=== PATIENT | male | born 1985 | race American Indian/Alaskan Native ===

== ENCOUNTER 2018-01-03 11:29 | Inpatient (IN) | payer OTHER ==
[2018-01-03 11:40] VITALS: BMI 32.1
[2018-01-03] MEDS ORDERED: Sodium Chloride 0.9% 1,000 ML IV STA ×2 (11:56→13:16)
[2018-01-03 12:41] LABS: URINE BILIRUBIN NEGATIVE (NEGATIVE); URINE BLOOD MODERATE (NEGATIVE); URINE GLUCOSE (UA) NEGATIVE (NEGATIVE); URINE LEUKOCYTE ESTERASE NEGATIVE Leu/uL (NEGATIVE); URINE PROTEIN 30 mg/dL (<30 mg/dL); URINE UROBILINOGEN 0.2 E.U./dL (<1 E.U./dL)
[2018-01-03 12:44] LABS: BASO # 0.02 K/mm3 (0.0-2.0); BASO % 0.1 % (0.0-3.0); GRAN # 14.33 (1.4-6.5); GRAN % 84.4 % (50.0-68.0); HEMOGLOBIN 15.9 g/dL (14.0-18.0); LYMPH # 1.1 (1.2-3.4); LYMPH % 6.4 % (22.0-35.0); MEAN CELL VOLUME 82.5 fl (80.0-105.0); MEAN CORPUSCULAR HEMOGLOBIN 30.5 pg (25.0-35.0); MEAN PLATELET VOLUME 9.9 fl (7.0-11.0); MONO # 1.6 (0.1-0.6); MONO % 9.1 % (1.0-6.0); RBC 5.21 10^6/uL (3.5-6.1); RED CELL DISTRIBUTION WIDTH 13.4 % (11.5-14.5)
[2018-01-03 12:45] LABS: URINE APPEARANCE CLEAR (CLEAR); URINE COLOR YELLOW (YELLOW)
[2018-01-03 12:53] LABS: ALB/GLOB RATIO 1.1 (1.1-1.8); ALBUMIN 4.4 g/dL (3.0-4.8); ALT/SGPT 47 U/L (7-56); AST/SGOT 79 U/L (17-59); BLOOD UREA NITROGEN 9 mg/dL (7-21); CALCIUM 9.2 mg/dL (8.4-10.5); GFR AFRICAN-AMERICAN > 60; GFR NON-AFRICAN AMERICAN > 60
--- NOTE | 2018-01-03 13:09 | ED PDOC ---
Arrival/HPI - General Chief Complaint: Medical Clearance Time Seen by Provider: 01/03/18 11:54 Historian: Patient - History of Present Illness Narrative History of Present Illness (Text): 01/03/18 13:03 32yo male with no pmhx bib EMS with complaint of generalized weakness and subjective fever. Patient states he has been feeling "hot and dehydrated" since Tuesday. States he kept drinking water, but still feels dehydrated. Also reports weakness. Although the triage states patient had no AC at home, patient stated that he had AC at home. Denies chest pain, SOB, URI symptoms, nausea, vomiting , abdominal pain, dizziness, any other complaint. He admits to using Marijuana on . Past Medical History - Provider Review Nursing Documentation Reviewed: Yes - Infectious Disease Hx of Infectious Diseases: None Family/Social History - Physician Review Nursing Documentation Reviewed: Yes Family/Social History: Unknown Family HX Allergies/Home Meds Allergies/Adverse Reactions: Allergies No Known Allergies Allergy (Verified 01/03/18 11:40) Home Medications: Home Meds Medication Instructions Recorded Confirmed No Known Home Med 01/03/18 01/03/18 Review of Systems - Physician Review All systems were reviewed & negative as marked: Yes - Review of Systems Constitutional: Fatigue Eyes: Normal ENT: Normal Respiratory: Normal Cardiovascular: Normal Gastrointestinal: Normal Genitourinary Male: Normal Musculoskeletal: Normal Skin: Normal Neurological: Normal Endocrine: Normal Hemo/Lymphatic: Normal Psychiatric: Normal Physical Exam Vital Signs Reviewed: Yes Vital Signs Temp Pulse Resp BP Pulse Ox 01/03/18 11:35 98.9 F 100 H 20 116/70 98 Temperature: Afebrile Blood Pressure: Normal Pulse: Regular Respiratory Rate: Normal Appearance: Positive for: Well-Appearing, Non-Toxic, Comfortable Pain Distress: None Mental Status: Positive for: Alert and Oriented X 3 - Systems Exam Head: Present: Atraumatic, Normocephalic Pupils: Present: PERRL Extroacular Muscles: Present: EOMI Conjunctiva: Present: Normal Mouth: Present: Moist Mucous Membranes Neck: Present: Normal Range of Motion Respiratory/Chest: Present: Clear to Auscultation, Good Air Exchange. No: Respiratory Distress, Accessory Muscle Use Cardiovascular: Present: Regular Rate and Rhythm, Normal S1, S2. No: Murmurs Abdomen: No: Tenderness, Distention, Peritoneal Signs Back: Present: Normal Inspection Upper Extremity: Present: Normal Inspection. No: Cyanosis, Edema Lower Extremity: Present: Normal Inspection. No: Edema Neurological: Present: GCS=15, CN II-XII Intact, Speech Normal Skin: Present: Warm, Dry, Normal Color. No: Rashes Psychiatric: Present: Alert, Oriented x 3, Normal Insight, Normal Concentration Medical Decision Making ED Course and Treatment: 01/03/18 21:00 PT in ED for sated history. He was hemodynamically stable and not hypoxic in ED. Lab was noted with leukocytosis and elevated CPK Pt was hydrated with 2L of NS for rhabdo. Broad spectrum abx - Vanco was ordered and zosyn was also given Blood culture ordered and pending CXR IMPRESSION: Left lateral pleural parenchymal based pathology -differential considerations as above. Consider CT of the chest with contrast enhancement for further evaluation Chest CT IMPRESSION: Extensive posterior left upper lobe consolidation compatible with an extensive infiltrate here. No endobronchial lesions or extrinsic compression masses suggested. The extensive consolidation/ infiltrate -extends to the left lateral pleural surface. At this time no loculated left pleural effusion or left empyema suggested Nevertheless, continued close follow-up is recommended to ensure uncomplicated improvement/resolution. Fatty liver Mild cardiomegaly. No pericardial effusion PT was admitted for IV abx, hydration and further evaluation Case was DW Dr. Doll and he accepted pt for admission - Lab Interpretations Lab Results: 01/03/18 12:05 01/03/18 12:05 Lab Results 01/03/18 13:50: Urine Opiates Screen Negative, Urine Methadone Screen Negative, Ur Barbiturates Screen Negative, Ur Phencyclidine Scrn Negative, Ur Amphetamines Screen Negative, U Benzodiazepines Scrn Negative, U Oth Cocaine Metabols Negative, U Cannabinoids Screen Positive H 01/03/18 12:30: Total Creatine Kinase 2730 H, CK-MB (CK-2) 3.5, CK-MB (CK-2) % Cancelled 01/03/18 12:05: Sodium 131 L, Potassium 3.5 L, Chloride 96 L, Carbon Dioxide 21 , Anion Gap 18, BUN 9, Creatinine 1.0, Est GFR ( Amer) > 60, Est GFR (Non -Af Amer) > 60, Random Glucose 106, Calcium 9.2, Total Bilirubin 0.6, AST 79 H, ALT 47, Alkaline Phosphatase 65, Total Protein 8.3, Albumin 4.4, Globulin 3.9, Albumin/Globulin Ratio 1.1 01/03/18 12:05: Urine Color Yellow, Urine Appearance Clear, Urine pH 6.0, Ur Specific [place] 1.010, Urine Protein 30 H, Urine Glucose (UA) Negative, Urine Ketones Negative, Urine Blood Moderate H, Urine Nitrate Negative, Urine Bilirubin Negative, Urine Urobilinogen 0.2, Ur Leukocyte Esterase Negative, Urine RBC 5 - 10, Urine WBC 2 - 5, Ur Epithelial Cells 3 - 4, Urine Bacteria Few 01/03/18 12:05: WBC 17.0 H, RBC 5.21, Hgb 15.9, Hct 43.0, MCV 82.5, MCH 30.5, MCHC 37.0, RDW 13.4, Plt Count 144, MPV 9.9, Gran % 84.4 H, Lymph % (Auto) 6.4 L , [place] % (Auto) 9.1 H, Eos % (Auto) 0.0 L, Baso % (Auto) 0.1, Gran # 14.33 H, Lymph # (Auto) 1.1 L, [place] # (Auto) 1.6 H, Eos # (Auto) 0.0, Baso # (Auto) 0.02 - RAD Interpretation Radiology Orders: 01/03/18 13:17 CHEST PORTABLE [RAD] Stat 01/03/18 13:51 CHEST W/CONTRAST [CT] Stat - Medication Orders Current Medication Orders: Acetaminophen (Tylenol 325mg Tab) 650 mg PO Q6H PRN PRN Reason: Pain, moderate (4-7) Last Admin: 01/03/18 16:50 Dose: 650 mg [facility] Pain/Vitals Document 01/03/18 16:50 SES (Rec: 01/03/18 16:50 SES [id number]) Vitals Temperature (97.6 F-99.6 F) 103 F Temperature Source Axillary Re-Assess: [facility] Pain/Vitals Document 01/03/18 17:50 SES (Rec: 01/03/18 18:47 SES [id number]) Vitals Temperature (97.6 F-99.6 F) 100.4 F Temperature Source Oral Ceftriaxone Sodium (Rocephin 1 Gram Ivpb) 1 gm in 100 mls @ 100 mls/hr IVPB DAILY VINAY PRN Reason: Protocol Sodium Chloride (Sodium Chloride 0.9%) 1,000 mls @ 150 mls/hr IV .Q6H40M VINAY Last Admin: 01/03/18 15:55 Dose: 150 mls/hr eMAR Start Stop Document 01/03/18 15:55 EQ (Rec: 01/03/18 15:55 EQ [id number]) Intravenous Solution Start Date 01/03/18 Start Time 15:55 End Date 01/03/18 Azithromycin (Zithromax 500mg In Ns) 500 mg in 250 mls @ 167 mls/hr IVPB DAILY VINAY PRN Reason: Protocol Lactobacillus Acidophilus (Bacid Acidophilus) 1 cap PO BID VINAY Last Admin: 01/03/18 18:46 Dose: 1 cap Discontinued Medications Sodium Chloride (Sodium Chloride 0.9%) 1,000 mls @ 999 mls/hr IV .Q1H1M STA Stop: 01/03/18 12:56 Last Admin: 01/03/18 12:19 Dose: 999 mls/hr eMAR Start Stop Document 01/03/18 12:19 EQ (Rec: 01/03/18 12:19 EQ [id number]) Intravenous Solution Start Date 01/03/18 Start Time 12:19 Sodium Chloride (Sodium Chloride 0.9%) 1,000 mls @ 999 mls/hr IV .Q1H1M STA Stop: 01/03/18 14:16 Last Admin: 01/03/18 13:33 Dose: 999 mls/hr eMAR Start Stop Document 01/03/18 13:33 EQ (Rec: 01/03/18 13:33 EQ [id number]) Intravenous Solution Start Date 01/03/18 Start Time 13:33 Vancomycin HCl (Vancomycin 1gm) 1 gm in 250 mls @ 167 mls/hr IVPB STAT STA PRN Reason: Protocol Stop: 01/03/18 15:08 Last Admin: 01/03/18 13:52 Dose: 167 mls/hr eMAR Start Stop Document 01/03/18 13:52 EQ (Rec: 01/03/18 13:52 EQ [id number]) Intravenous Solution Start Date 01/03/18 Start Time 13:52 Piperacillin Sod/Tazobactam Sod (Zosyn 3.375 In Ns 100ml) 100 mls @ 200 mls/hr IVPB STAT STA PRN Reason: Protocol Stop: 01/03/18 15:10 Last Admin: 01/03/18 15:54 Dose: 200 mls/hr eMAR Start Stop Document 01/03/18 15:54 EQ (Rec: 01/03/18 15:54 EQ [id number]) Intravenous Solution Start Date 01/03/18 Start Time 15:54 End Date 01/03/18 End time 16:24 Total Infusion Time 30 Disposition/Present on Arrival - Present on Arrival Any Indicators Present on Arrival: No History of DVT/PE: No History of Uncontrolled Diabetes: No Urinary Catheter: No History of Decub. Ulcer: No History Surgical Site Infection Following: None - Disposition Have Diagnosis and Disposition been Completed?: Yes Diagnosis: Pneumonia, Rhabdomyolysis, Leukocytosis Disposition: HOSPITALIZED Disposition Time: 14:15 Patient Plan: Admission Patient Problems: Current Active Problems Problem Status Onset Leukocytosis Acute Pneumonia Acute Rhabdomyolysis Acute Condition: STABLE
[2018-01-03 13:32] LABS: CK-MB 3.5 ng/mL (0.0-3.6)
[2018-01-03] MEDS ORDERED: Vancomycin 1gm in NS 250ml 1 GM/250 ML BAG IVPB STA (13:39)
--- NOTE | 2018-01-03 13:46 | RAD ---
HISTORY: admission/leukocytosis COMPARISON: No prior. FINDINGS: LUNGS: Homogeneous opacity inferior left westley thorax -lateral aspect noted. Right lung relatively clear PLEURA: Left lateral loculated pleural effusion and/or implying edema or other left pleural base pathology / left pleural parenchymal infiltrate all considerations. No obscuration of the left costophrenic angle to suggest a large multiple fluid effusion here. No pneumothorax apparent. CARDIOVASCULAR: Normal OSSEOUS STRUCTURES: No gross significant abnormality is appreciated VISUALIZED UPPER ABDOMEN: Normal. OTHER FINDINGS: None. IMPRESSION: Left lateral pleural parenchymal based pathology -differential considerations as above. Consider CT of the chest with contrast enhancement for further evaluation
[2018-01-03 13:47] LABS: URINE BACTERIA FEW (NEG)
[2018-01-03] MEDS ORDERED: Iohexol 350 MG/100 ML VIAL ONE (13:57)
[2018-01-03 14:24] LABS: BARBITURATES, UR NEGATIVE (NEGATIVE); BENZODIAZEPINES, UR NEGATIVE (NEGATIVE); OPIATES, UR NEGATIVE (NEGATIVE); PHENCYCLIDINE, UR NEGATIVE (NEGATIVE)
[2018-01-03] MEDS ORDERED: Piperacillin/Tazobact 3.375 gm 100 ML IVPB STA (14:41)
--- NOTE | 2018-01-03 14:45 | CT ---
PROCEDURE: CT Chest with contrast HISTORY: Per findings on CXR COMPARISON: Portable chest x-ray 01/03/2018 TECHNIQUE: Contiguous axial images were obtained through the chest with intravenous contrast enhancement. Sagittal and coronal reconstructions were performed. IV contrast: 100 mL of Omnipaque 350 Radiation dose (DLP): 635 mGy-cm. This CT exam was performed using one or more of the following dose reduction techniques: Automated exposure control, adjustment of the mA and/or kV according to patient size, and/or use of iterative reconstruction technique. FINDINGS: LUNGS: Extensive posterior segmental left upper lobe consolidation present. . Contiguous with the left lateral pleural surface. No typical loculated fluid collection or typical implying heme a here now suggested. However close continued follow-up to ensure resolution and improved aeration here is advised. No central endobronchial lesions noted no extrinsic compression masses is noted. There is some diminution of the more peripheral left bronchials by the consolidation. A concomitant atelectasis component is inferred. Much lesser, much more patchy opacities in the lingula also suggested MEDIASTINUM: Unremarkable thoracic aorta. No aneurysm or dissection. The heart is enlarged. No pericardial effusion. Main pulmonary artery unremarkable. No vascular congestion. No lymphadenopathy. PLEURA: No pleural fluid. No pneumothorax. BONES: No fracture. No destructive lesion. UPPER ABDOMEN: Fatty liver OTHER FINDINGS: None. IMPRESSION: Extensive posterior left upper lobe consolidation compatible with an extensive infiltrate here. No endobronchial lesions or extrinsic compression masses suggested. The extensive consolidation/ infiltrate -extends to the left lateral pleural surface. At this time no loculated left pleural effusion or left empyema suggested Nevertheless, continued close follow-up is recommended to ensure uncomplicated improvement/resolution. Fatty liver Mild cardiomegaly. No pericardial effusion
[2018-01-03] MEDS: Sodium Chloride 0.9% 1,000 ML IV SCH (15:55)
--- NOTE | 2018-01-03 16:06 | CP.PCM.HP ---
<Mya Cook - Last Filed: 01/03/18 16:10> History of Present Illness - History of Present Illness History of Present Illness: Mya Cook PGY 1 History & Physical CC: Weakness Patient is a 32 year old male with PMH lymphoma in remission since 16 years ago, presented with complaint of weakness and feeling overheated. This began about 3 days prior, patient states he has tried to drink lots of fluids as well as other methods to cool off but could not alleviate his symptoms. Patient states he was not involved in any out of the ordinary activity when his symptoms started such as intense workout, fall or trauma. He also complains of back pain localized to his lower back. He admits to a nonproductive cough, which causes a headache. He admits to nausea, but no vomiting. He denies chest pain, hemoptysis, shortness of breath, abdominal pain , constipation, diarrhea. 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 Social alcohol use. Former cigarette smoker 1/2 PPD for 5 years. Currently smokes cigars. Occasional marijuana use. FHx: DM NO PMD Present on Admission - Present on Admission Any Indicators Present on Admission: No Review of Systems - Review of Systems All systems: reviewed and no additional remarkable complaints except (12 point ROS reviewed and is negative other than what is stated in HPI) - Constitutional Constitutional: As Per HPI - Cardiovascular Cardiovascular: As Per HPI Past Patient History - Infectious Disease Hx of Infectious Diseases: None - PSYCHIATRIC Hx Substance Use: No - SURGICAL HISTORY Hx Surgeries: No - ANESTHESIA Hx Anesthesia: No Hx Anesthesia Reactions: No Hx Malignant Hyperthermia: No Meds Allergies/Adverse Reactions: Allergies Allergy/AdvReac Type Severity Reaction Status Date / Time No Known Allergies Allergy Verified 01/03/18 11:40 Physical Exam - Constitutional Appears: Non-toxic, No Acute Distress - Head Exam Head Exam: ATRAUMATIC, NORMOCEPHALIC - Eye Exam Eye Exam: EOMI, Normal appearance - ENT Exam ENT Exam: Mucous Membranes Dry - Neck Exam Neck exam: Positive for: Normal Inspection - Respiratory Exam Respiratory Exam: Decreased Breath Sounds - Cardiovascular Exam Cardiovascular Exam: RRR, +S1, +S2. absent: Rubs, Systolic Murmur - GI/Abdominal Exam GI & Abdominal Exam: Normal Bowel Sounds, Soft. absent: Distended, Firm, Guarding, Organomegaly, Rebound, Tenderness - Rectal Exam Rectal Exam: Deferred - Extremities Exam Extremities exam: Positive for: full ROM. Negative for: calf tenderness, pedal edema - Back Exam Back exam: NORMAL INSPECTION - Neurological Exam Neurological exam: Alert, CN II-XII Intact, Oriented x3 - Psychiatric Exam Psychiatric exam: Normal Affect, Normal Mood - Skin Skin Exam: Dry, Intact, Normal Color, Warm Results - Vital Signs Recent Vital Signs: Last Vital Signs Temp 98.9 F 01/03/18 11:35 Pulse 100 H 01/03/18 11:35 Resp 20 01/03/18 11:35 BP 116/70 01/03/18 11:35 Pulse Ox 98 01/03/18 11:35 - Labs Result Diagrams: 01/03/18 12:05 01/03/18 12:05 Assessment & Plan - Assessment and Plan (Free Text) Assessment: 32 yo male with PMH of lymphoma presents to [facility] with weakness, subsequently found to have rhabdomyolysis and extensive left upper lobe consolidation. 1) Left upper lobe consolidation - Likely secondary to CAP - CXR shows left lateral pleural parynchemal based pathology - Chest CT shows extensive left upper lobe consolidation compatible with extensive infiltrate here. No loculated left pleural effusion or left empyema suggested. - WBC 17 - M. pneumo IGG, Legionella AG urine, strep pneumo antigen, - Blood culture - Procal - HIV - Vanc and zosyn given in ED - Rocephin 1 gm daily - Azithromycin 500 mg daily - Pulm consult 2) Rhabdomyolysis - Total CK 2730 - Repeat CK in AM - UA shows 30 protein, moderate blood (possibly d/t rhabdo) - Repeat UA in AM - Given 2 L NS in ED - Continue NS at 150 mls/hr GI/DVT PPX - GI prophylaxis not indicated at this time - DVT prophylaxis: SCDs Case seen and discussed with Dr. Lawson Cook PGY 1 <Rachel Pathak R - Last Filed: 01/04/18 08:32> Results - Vital Signs Recent Vital Signs: Last Vital Signs Temp 103.2 F H 01/04/18 05:23 Pulse 104 H 01/03/18 22:40 Resp 16 01/03/18 22:40 BP 131/83 01/03/18 22:40 Pulse Ox 95 07/03/18 22:40 - Labs Result Diagrams: 01/04/18 06:45 01/04/18 06:45 Labs: Laboratory Results - last 24 hr 01/03/18 01/04/18 01/04/18 15:45 06:45 06:45 WBC 11.4 H D RBC 4.66 Hgb 14.0 Hct 38.5 L MCV 82.6 MCH 30.0 MCHC 36.4 RDW 13.7 Plt Count 144 MPV 10.0 Sodium 138 Potassium 3.6 Chloride 106 Carbon Dioxide 21 Anion Gap 15 BUN 7 Creatinine 0.8 Est GFR ( Amer) > 60 Est GFR (Non-Af Amer) > 60 Random Glucose 104 Calcium 8.3 L Phosphorus 1.9 L Magnesium 2.2 Total Bilirubin 0.4 AST 114 H D ALT 75 H Alkaline Phosphatase 48 Total Creatine Kinase > 1600 H Total Protein 6.8 Albumin 3.5 Globulin 3.3 Albumin/Globulin Ratio 1.1 Ur L.pneumophila Ag Positive H Attending/Attestation - Attestation I have personally seen and examined this patient.: Yes I have fully participated in the care of the patient.: Yes I have reviewed all pertinent clinical information: Yes Notes (Text): Patient seen and examined by me at 3:30 PM 01/03/18 with resident at bedside. Case including physical assessment and plan discussed in detail with resident. Agree with above with following additions/changes. Patient states that he has been feeling "overheated" since 01/01/2018. He states he did not take his temperature. He denies any associated congestion. No rhinorrhea. Patient states he does have a "little bit of a cough". He denies any sick contacts. He is unsure if he had a fever at home. Did not try any medications for this at home. He states he was drinking a lot fluids. He states that he also feels like he has a headache when he coughs. No dizziness. No change in vision. No chest pain or shortness of breath. No nausea vomiting or abdominal pain. No dysuria. No diarrhea or constipation. Physical exam: Gen: Patient is awake and alert lying in bed in no acute distress HEENT: Normocephalic atraumatic. extraocular muscles intact. Pupils equal and reactive. Hearing grossly intact. Ears and nose externally unremarkable. Pharynx is pink. Dry mucous membranes. No pharyngeal erythema or exudate appreciated. Neck is supple. Pulmonary: Decreased breath sounds, more prominent left upper lobe.. No more straight effort. No rales or wheezing appreciated. Mild rhonchi left upper lobe. Cardiovascular: Normal rhythm. Normal S1 and S2. No murmurs or gallops appreciated. Gastrointestinal: Soft, nontender, nondistended. Positive bowel sounds all 4 quadrants. No guarding. No masses appreciated. Musculoskeletal: Normal range of motion of extremities. no calf tenderness. No CVA tenderness. Vascular: 2+ peripheral pulses upper and lower extremities Central nervous system: AAO 3, cranial nerves 2 through 12 grossly intact, 5 out of 5 muscle strength all extremities, sensation intact. Dermatologic: Skin warm and dry Assessment and plan: Patient is a 32-year-old male with past medical history significant for lymphoma that presented to the emergency room with feeling "overheated". Patient had left upper lobe consolidation on CT chest. Patient also found to have leukocytosis, hyponatremia, and hypochloremia. Patient also with elevated CPK and rhabdomyolysis. Patient also with hypokalemia. 1. Left upper lobe consolidation seen on chest CT: Likely community-acquired pneumonia. Pulmonary consulted, follow-up recommendations. Patient received vancomycin and Zosyn in the ED. Need on Rocephin and Zithromax. We'll check urine for Legionella, mycoplasma pneumonia, and strep pneumonia. Place on IV fluids. Tylenol as needed. 2. Leukocytosis. Likely secondary to #1. Continue antibiotics. Follow up repeat labs in a.m. 3. Hyponatremia and hypochloremia. Likely secondary to dehydration. IV fluids. Follow up repeat labs in a.m. 4. Rhabdomyolysis. CPK is elevated. Place on IV fluids. Follow up repeat labs in a.m. 5. Drug abuse. UDS positive for marijuana. Counseled on cessation. Case was discussed with patient regarding current diagnosis and treatment 01/04/18 08:32
[2018-01-03] MEDS: Lactobacillus Acidophilus 500 MU Cap PO SCH (18:46)
--- NOTE | 2018-01-04 04:11 | CON ---
DATE: 01/03/2018 HISTORY OF PRESENT ILLNESS: This is a 32-year-old gentleman with history of lymphoma (unknown whether Hodgkin or non-Hodgkin) at the age of 16 and without other significant past medical history; who presented this time with 3-day history of fever, nausea, malaise, fatigue, dry cough of rather acute onset. His symptoms progressed and were not alleviated with any maneuvers. No aggravating factors as well. Patient denies chest pain, hemoptysis, shortness of breath, abdominal pain, constipation. He, however, emphasizes that the symptoms started acutely. PAST MEDICAL HISTORY: Lymphoma. PAST SURGICAL HISTORY: Bone marrow biopsy. ALLERGIES: NKDA. SOCIAL HISTORY: Patient is current smoker. He smoked about half a pack a day for 5 years. Occasional marijuana use. Social alcohol use. FAMILY HISTORY: Noncontributory. REVIEW OF SYSTEMS: Review of 12-organ system other than mentioned in history of present illness is negative. MEDICATIONS AT HOME: None. PHYSICAL EXAMINATION: VITAL SIGNS: Temperature 103, heart rate 110, blood pressure 125/80, respiratory rate 18, oxygen saturation 96% on room air. ENT: Head and neck atraumatic. LUNGS: Clear to auscultation bilaterally. HEART: Regular rate and rhythm. S1, S2 normal. ABDOMEN: Soft, nontender, nondistended. MUSCULOSKELETAL: No C/C/E. NEUROLOGIC: Patient moves all extremities spontaneously. SKIN: Moist. PSYCHIATRIC: Patient is alert, awake, and oriented x3. Reports that he is doing better since his admission to the hospital. LABORATORY DATA: WBC is 17, hemoglobin 15.9, platelet count 144. Sodium 131, potassium 3.5, chloride 96, carbon dioxide 21, BUN 9, creatinine 1. AST 79, ALT 47, total CPK 2730. Urine is negative for nitrites and leukocyte esterase. MEDICATIONS: Tylenol p.r.n., ceftriaxone, azithromycin. LABORATORY DATA: CAT scan showed dense consolidation in the left lower lobe with some ground-glass rim and some air bronchograms. ASSESSMENT AND PLAN: This is a 32-year-old gentleman without significant risk factors for multidrug-resistant pathogens who presented with community-acquired pneumonia without signs of end-organ dysfunction (no hypoxemia, no acute kidney injury, no encephalopathy, no significant medical comorbidities). Thus, I agree with ceftriaxone and azithromycin at the present time. I agree with septic workup including blood culture, urine culture, procalcitonin, urine for Legionella and streptococcal antigen. The course of antibiotics would be determined by achieving clinical stability; it should be minimal of 5 days however. I would continue with IV fluids. I will order a CRP and if above 150 will consider small dose of steroids for 5 days. We would continue target euvolemia, euglycemia, normothermia, and oxygen saturation more than 90%. We will continue with deep venous thrombosis and gastrointestinal prophylaxis. ccm time 40 min Khurram Vera MD [facility]
[2018-01-04] MEDS: Sodium Chloride 0.9% 1,000 ML IV SCH (05:21)
[2018-01-04 07:09] LABS: MEAN CELL VOLUME 82.6 fl (80.0-105.0); MEAN CORPUSCULAR HGB CONC 36.4 g/dl (31.0-37.0); RBC 4.66 10^6/uL (3.5-6.1); RED CELL DISTRIBUTION WIDTH 13.7 % (11.5-14.5); WHITE BLOOD COUNT 11.4 10^3/ul (4.5-11.0)
[2018-01-04 07:41] LABS: ALB/GLOB RATIO 1.1 (1.1-1.8); ALBUMIN 3.5 g/dL (3.0-4.8); ALT/SGPT 75 U/L (7-56); AST/SGOT 114 U/L (17-59); BLOOD UREA NITROGEN 7 mg/dL (7-21); CALCIUM 8.3 mg/dL (8.4-10.5); GFR AFRICAN-AMERICAN > 60; GFR NON-AFRICAN AMERICAN > 60
[2018-01-04] MEDS: levoFLOXacin 750 mg in D5W 150 ML BAG IVPB SCH ×2 (08:34→11:24)
[2018-01-04 09:05] LABS: CK-MB 2.3 ng/mL (0.0-3.6)
[2018-01-04] MEDS ORDERED: Azithromycin 500MG/NS 250ml 500 MG/250 ML BAG IVPB SCH (10:00)
[2018-01-04] MEDS ORDERED: cefTRIAXone 1 gm 1 GM/100 ML BAG IVPB SCH (10:00)
[2018-01-04] MEDS ORDERED: levoFLOXacin 750 mg in D5W 150 ML BAG IVPB SCH (10:00)
[2018-01-04] MEDS: Lactobacillus Acidophilus 500 MU Cap PO SCH ×2 (11:20→18:57)
--- NOTE | 2018-01-04 13:02 | RAD ---
HISTORY: Pneumonia. COMPARISON: 01/03/2018 single-view chest. 01/03/2018 CT thorax FINDINGS: LUNGS: Extensive left upper lobe infiltrate best visualized on the prior CT scan. The findings radiographically appear less confluent. PLEURA: No significant pleural effusion identified, no pneumothorax apparent. CARDIOVASCULAR: Normal. OSSEOUS STRUCTURES: No significant abnormalities. VISUALIZED UPPER ABDOMEN: Normal. OTHER FINDINGS: None. IMPRESSION: Modest interval improvement in right upper lobe pneumonia. Extensive consolidative changes however remain.
--- NOTE | 2018-01-04 14:55 | PN ---
DATE: 01/04/2018 SUBJECTIVE: The patient is seen and examined at bedside. He still has recurrent fevers; however, reports subjectively doing a little bit better. Night was uneventful. OBJECTIVE: VITAL SIGNS: Temperature 102.9, heart rate 96, respiratory rate 20, blood pressure 122/76, oxygen saturation 95%. ENT: Head and neck atraumatic. LUNGS: Scattered wheezes, left more than right and a few crackles on the left base. HEART: Regular rhythm and rate. S1, S2 normal. ABDOMEN: Soft, nontender, nondistended. MUSCULOSKELETAL: No C/C/E. NEUROLOGICAL: The patient moves all extremities spontaneously. SKIN: Moist. PSYCHIATRIC: The patient is alert and oriented x3. DATA: Chest x-ray showed some left lower lobe infiltrate. WBC 11.4, hemoglobin 14, platelet count 144. Sodium 138, potassium 3.6, chloride 106, carbon dioxide 21, BUN 7, creatinine 0.8, glucose 104, AST 114, ALT 75, total bilirubin 0.4. CPK 4347. CRP 323.3. Urine positive for Legionella pneumophilae. MEDICATIONS: Tylenol p.r.n., levofloxacin, normal saline 150 mL/hour. ASSESSMENT AND PLAN: This is 32-year-old gentleman who presented to [facility] with sepsis secondary to community-acquired pneumonia, with substantial inflammatory component (CRP>300). He does not have encephalopathy nor acute kidney injury. No cardiomyopathy. He doesnt have concurrent co-morbidities even though had had lymphoma 16 yrs ago. He is currently on levofloxacin. LLL infiltrate persists. I will start low dose steroids for 5 days (discussed this with ID, who agreed). We will continue target euvolemia, euglycemia, normothermia and oxygen saturation more than 90%. We will continue with DVT, GI prophylaxes. ccm time 40 min Khurram Vera MD MTDAdeola
--- NOTE | 2018-01-04 17:50 | CP.PCM.PN ---
<Mya Cook L - Last Filed: 01/04/18 17:47> Subjective - Date & Time of Evaluation Date of Evaluation: 01/04/18 Time of Evaluation: 08:15 - Subjective Subjective: Patient febrile overnight with Tmax 103.2. Patient states he is feeling better than yesterday. However he is still experiencing back pain as well as pain on his left side, which occurs only when he lies down on his left side. Denies chest pain, shortness of breath, abd pain, N/V. Objective - Vital Signs/Intake and Output Vital Signs (last 24 hours): Temp Pulse Resp BP Pulse Ox 99.0 F 20 L 96 H 122/76 95 01/04/18 16:32 01/04/18 06:00 01/04/18 06:00 01/04/18 06:00 01/03/18 22:40 Intake and Output: 01/04/18 01/04/18 06:59 18:59 Intake Total 2800 360 Balance 2800 360 - Medications Medications: Current Medications Acetaminophen (Tylenol 325mg Tab) 650 mg PO Q6H PRN PRN Reason: Pain, moderate (4-7) Last Admin: 01/04/18 11:26 Dose: 650 mg Sodium Chloride (Sodium Chloride 0.9%) 1,000 mls @ 150 mls/hr IV .Q6H40M [facility] Last Admin: 01/04/18 05:21 Dose: 150 mls/hr Lactobacillus Acidophilus (Bacid Acidophilus) 1 cap PO BID [facility] Last Admin: 01/04/18 11:20 Dose: 1 cap Levofloxacin/Dextrose (Levaquin 750mg) 750 mg IVPB DAILY [facility] PRN Reason: Protocol Stop: 01/13/18 07:21 Last Admin: 01/04/18 11:24 Dose: Not Given Methylprednisolone (Solu-Medrol) 20 mg IVP Q12 [facility] Stop: 01/09/18 23:59 - Labs Labs: 01/04/18 06:45 01/04/18 06:45 - Additional Findings Additional findings: - Constitutional Appears: Non-toxic, No Acute Distress - Head Exam Head Exam: ATRAUMATIC, NORMOCEPHALIC - Eye Exam Eye Exam: EOMI, Normal appearance - ENT Exam ENT Exam: Mucous Membranes Dry - Neck Exam Neck exam: Positive for: Normal Inspection - Respiratory Exam Respiratory Exam: Decreased Breath Sounds - Cardiovascular Exam Cardiovascular Exam: RRR, +S1, +S2. absent: Rubs, Systolic Murmur - GI/Abdominal Exam GI & Abdominal Exam: Normal Bowel Sounds, Soft. absent: Distended, Firm, Guarding, Organomegaly, Rebound, Tenderness - Rectal Exam Rectal Exam: Deferred - Extremities Exam Extremities exam: Positive for: full ROM. Negative for: calf tenderness, pedal edema - Back Exam Back exam: NORMAL INSPECTION - Neurological Exam Neurological exam: Alert, CN II-XII Intact, Oriented x3 - Psychiatric Exam Psychiatric exam: Normal Affect, Normal Mood - Skin Skin Exam: Dry, Intact, Normal Color, Warm Assessment and Plan - Assessment and Plan (Free Text) Plan: 32 yo male with PMH of lymphoma [place] [facility], subsequently found to have rhabdomyolysis and extensive left upper lobe consolidation. 1) CAP d/t Legionella pneumophila - CXR shows modest interval improvement in RUL pneumonia. Consolidation remains. - Chest CT shows extensive left upper lobe consolidation compatible with extensive infiltrate here. No loculated left pleural effusion or left empyema suggested. - WBC 11.4 (down from 17.0) - Legionella AG urine positive - Blood culture negative for 24 hours x2 - Procal - HIV - Levaquin - Solu-Medrol - Chest PT - Pulm consult - ID consult 2) Rhabdomyolysis - Total CK 4347 - Repeat CK in AM - UA shows 30 protein, moderate blood (possibly d/t rhabdo) - UA in AM - Continue NS at 150 mls/hr 3) Hyponatremia - Sodium 138 - Resolved 4) Hypochloremia - Chloride 106 - Resolved 5) Substance abuse - UDS positive for cannabinoids - Counseling GI/DVT PPX - GI prophylaxis not indicated at this time - DVT prophylaxis: SCDs Case seen and discussed with Dr. Lawson Cook PGY 1 <Rachel Pathak R - Last Filed: 01/05/18 07:27> Objective - Vital Signs/Intake and Output Vital Signs (last 24 hours): Temp Pulse Resp BP Pulse Ox 99 F 98 H 20 130/84 95 01/04/18 22:38 01/04/18 22:00 01/04/18 22:00 01/04/18 22:00 01/04/18 22:00 Intake and Output: 07/05/18 07/05/18 06:59 18:59 Intake Total 1080 Balance 1080 - Medications Medications: Current Medications Acetaminophen (Tylenol 325mg Tab) 650 mg PO Q6H PRN PRN Reason: Pain, moderate (4-7) Last Admin: 01/04/18 11:26 Dose: 650 mg Sodium Chloride (Sodium Chloride 0.9%) 1,000 mls @ 150 mls/hr IV .Q6H40M [facility] Last Admin: 01/05/18 02:48 Dose: Not Given Lactobacillus Acidophilus (Bacid Acidophilus) 1 cap PO BID [facility] Last Admin: 01/04/18 18:57 Dose: 1 cap Levofloxacin/Dextrose (Levaquin 750mg) 750 mg IVPB DAILY [facility] PRN Reason: Protocol Stop: 01/13/18 07:21 Last Admin: 01/04/18 11:24 Dose: Not Given Methylprednisolone (Solu-Medrol) 20 mg IVP Q12 [facility] Stop: 01/09/18 23:59 Last Admin: 01/04/18 21:16 Dose: 20 mg - Labs Labs: 01/05/18 06:10 01/04/18 06:45 Attending/Attestation - Attestation I have personally seen and examined this patient.: Yes I have fully participated in the care of the patient.: Yes I have reviewed all pertinent clinical information, including history, physical exam and plan: Yes Notes (Text): Patient seen and examined by me at 11:45AM 01/04/18 with resident at bedside. Case including physical assessment and plan discussed in detail with resident. Agree with above with following additions/changes. Patient states that he is feeling better today. Patient has been febrile. He complains of intermittent diaphoresis and chills. Cough is improved. No chest pain or shortness of breath. No nausea vomiting or abdominal pain. No dysuria. No diarrhea or constipation. No headaches or dizziness. Physical exam: Gen: Patient is awake and alert sitting up in bed in no acute distress HEENT: Normocephalic atraumatic. extraocular muscles intact. Pupils equal and reactive. Oropharynx is pink and moist. No pharyngeal erythema or exudate appreciated. Neck is supple. Pulmonary: Decreased breath sounds, more prominent left upper lobe. Normal respiratory effort. No rhonchi, rales or wheezing appreciated. Cardiovascular: Normal rhythm. Normal S1 and S2. No murmurs or gallops appreciated. Gastrointestinal: Soft, nontender, nondistended. Positive bowel sounds all 4 quadrants. No guarding. No masses appreciated. Musculoskeletal: Normal range of motion of extremities. no calf tenderness. No CVA tenderness. Vascular: 2+ peripheral pulses upper and lower extremities Central nervous system: AAO 3 Dermatologic: Skin warm and dry Assessment and plan: Patient is a 32-year-old male with past medical history significant for lymphoma that presented to the emergency room with feeling "overheated". Patient with Legionella pneumonia. 1. Sepsis secondary to Community-acquired pneumonia secondary to Legionella. Left upper lobe consolidation seen on chest CT. Procalcitonin. elevated Pulmonary following, recommendations appreciated. Continue IV fluids. Antibiotics changed to Levaquin. ID following, recommendations appreciated. Patient also started on steroids for inflammation secondary to Legionella. Follow-up HIV. Continues to be febrile. Leukocytosis improved. 2. Leukocytosis. Secondary to #1. Improved. Continue antibiotics. 3. Elevated LFTs. Likely secondary to sepsis versus antibiotics. Continue to monitor. 4. Hyponatremia and hypochloremia. Likely secondary to dehydration. Hyponatremia also may be secondary to Legionella. Resolved. Continue IV fluids. 5. Rhabdomyolysis. Continue IV fluids. Monitor CPK. 6. Drug abuse. UDS positive for marijuana. Counseled on cessation. Case was discussed in detail with patient regarding current diagnosis and treatment
[2018-01-04 20:36] VITALS: RESP 20
[2018-01-04] MEDS: MethylPREDNISolone 40 mg Vial IVP SCH (21:16)
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
[2018-01-05] MEDS: Sodium Chloride 0.9% 1,000 ML IV SCH ×2 (02:48→22:21)
[2018-01-05 06:35] LABS: HEMOGLOBIN 14.6 g/dL (14.0-18.0); MEAN CELL VOLUME 83.6 fl (80.0-105.0); MEAN CORPUSCULAR HGB CONC 35.9 g/dl (31.0-37.0); MEAN PLATELET VOLUME 10.3 fl (7.0-11.0); RBC 4.87 10^6/uL (3.5-6.1); RED CELL DISTRIBUTION WIDTH 14.1 % (11.5-14.5); WHITE BLOOD COUNT 9.4 10^3/ul (4.5-11.0)
[2018-01-05 07:19] LABS: ALBUMIN 3.4 g/dL (3.0-4.8); ALT/SGPT 135 U/L (7-56); AST/SGOT 162 U/L (17-59); BLOOD UREA NITROGEN 7 mg/dL (7-21); CALCIUM 8.3 mg/dL (8.4-10.5); GFR AFRICAN-AMERICAN > 60; GFR NON-AFRICAN AMERICAN > 60
[2018-01-05 08:33] LABS: CK-MB 2.8 ng/mL (0.0-3.6)
[2018-01-05] MEDS ORDERED: Albuterol-Ipratrop 3 mg / 0.5 (3 ml) UD IH PRN (10:27)
[2018-01-05] MEDS: Lactobacillus Acidophilus 500 MU Cap PO SCH ×2 (11:13→19:09)
[2018-01-05] MEDS: MethylPREDNISolone 40 mg Vial IVP SCH ×2 (11:13→22:15)
[2018-01-05] MEDS: levoFLOXacin 750 mg in D5W 150 ML BAG IVPB SCH (11:18)
--- NOTE | 2018-01-05 12:04 | CP.PCM.PN ---
Subjective - Date & Time of Evaluation Date of Evaluation: 01/05/18 Time of Evaluation: 08:00 - Subjective Subjective: Overnight had Tmax of 101.9. After dose of Tylenol temp came down to 99. Patient reports feeling better today. States pain is well managed with Motrin. Denies chest pain, SOB, N/V, abd pain. Objective - Vital Signs/Intake and Output Vital Signs (last 24 hours): Temp Pulse Resp BP Pulse Ox 98 F 65 20 113/71 98 01/05/18 06:00 01/05/18 06:00 01/05/18 06:00 01/05/18 06:00 01/05/18 06:00 Intake and Output: 01/05/18 01/05/18 06:59 18:59 Intake Total 1080 Balance 1080 - Medications Medications: Current Medications Albuterol/Ipratropium (Duoneb 3 Mg/0.5 Mg (3 Ml) Ud) 3 ml IH [id number] VINAY Albuterol/Ipratropium (Duoneb 3 Mg/0.5 Mg (3 Ml) Ud) 3 ml IH Q2H PRN PRN Reason: Shortness of Breath Sodium Chloride (Sodium Chloride 0.9%) 1,000 mls @ 150 mls/hr IV .Q6H40M [facility] Last Admin: 01/05/18 02:48 Dose: Not Given Lactobacillus Acidophilus (Bacid Acidophilus) 1 cap PO BID [facility] Last Admin: 01/05/18 11:13 Dose: 1 cap Levofloxacin/Dextrose (Levaquin 750mg) 750 mg IVPB DAILY [facility] PRN Reason: Protocol Stop: 01/13/18 07:21 Last Admin: 01/05/18 11:18 Dose: 750 mg Methylprednisolone (Solu-Medrol) 20 mg IVP Q12 [facility] Stop: 01/09/18 23:59 Last Admin: 01/05/18 11:13 Dose: 20 mg - Labs Labs: 01/05/18 06:10 01/05/18 06:10 - Additional Findings Additional findings: - Constitutional Appears: Non-toxic, No Acute Distress - Head Exam Head Exam: ATRAUMATIC, NORMOCEPHALIC - Eye Exam Eye Exam: EOMI, Normal appearance - ENT Exam ENT Exam: Mucous Membranes Dry - Neck Exam Neck exam: Positive for: Normal Inspection - Respiratory Exam Respiratory Exam: Decreased Breath Sounds on the left. Inspiratory wheezes - Cardiovascular Exam Cardiovascular Exam: RRR, +S1, +S2. absent: Rubs, Systolic Murmur - GI/Abdominal Exam GI & Abdominal Exam: Normal Bowel Sounds, Soft. absent: Distended, Firm, Guarding, Organomegaly, Rebound, Tenderness - Rectal Exam Rectal Exam: Deferred - Extremities Exam Extremities exam: Positive for: full ROM. Negative for: calf tenderness, pedal edema - Back Exam Back exam: NORMAL INSPECTION - Neurological Exam Neurological exam: Alert, CN II-XII Intact, Oriented x3 - Psychiatric Exam Psychiatric exam: Normal Affect, Normal Mood - Skin Skin Exam: Dry, Intact, Normal Color, Warm Assessment and Plan - Assessment and Plan (Free Text) Assessment: 32 yo male with PMH of lymphoma [place] [facility], subsequently found to have rhabdomyolysis and extensive left upper lobe consolidation. 1) Sepsis likely due to CAP secondary to Legionella pneumophila - Temp 99 after dose of Tylenol last night - CXR shows modest interval improvement in RUL pneumonia. Consolidation remains. - Chest CT shows extensive left upper lobe consolidation compatible with extensive infiltrate here. No loculated left pleural effusion or left empyema suggested. - WBC trending down - Legionella AG urine positive - Blood culture negative for 24 hours x2 - Procal elevated - HIV - Continue Levaquin - Continue Solu-Medrol - Chest PT - Pulm consult - ID consult 2) Rhabdomyolysis - Total CK trending down - UA shows 30 protein, moderate blood (possibly d/t rhabdo) - Continue NS at 150 mls/hr 3) Hyponatremia - Resolved 4) Hypochloremia - Resolved 5) Substance abuse - UDS positive for cannabinoids - Counseling GI/DVT PPX - GI prophylaxis not indicated at this time - DVT prophylaxis: SCDs Case seen and discussed with Dr. Lawson Cook PGY 1
[2018-01-05] MEDS: Albuterol-Ipratrop 3 mg / 0.5 (3 ml) UD IH SCH ×2 (13:21→20:48)
--- NOTE | 2018-01-05 23:08 | PN ---
DATE: 01/05/2018 SUBJECTIVE: The patient is in bed, in no acute distress, was doing much better. PHYSICAL EXAMINATION: GENERAL: Temperature is 99, and blood pressure is 120/70, respiratory rate of 16. HEENT: Unremarkable. NECK: Supple. LUNGS: Have decreased breath sounds HEART: Normal S1 and S2. ABDOMEN: Soft. LABORATORY DATA: Reveals a white count of 9.4, procalcitonin 0.61. Urinalysis is noted. Toxicology is noted. Urine for Legionella antigen is positive. HIV is negative. Microbiology reveals the blood cultures are negative. Review of orders reveals patient to be on IV Levaquin. The patient started on Solu-Medrol by Dr. Vera. ASSESSMENT AND PLAN: This is a 32-year-old with a past medical history of lymphoma 16 years ago, now presenting with sepsis with Legionella pneumonia, on IV Levaquin. We will able to switch to p.o. Levaquin upon discharge. Rodo Jean MD
[2018-01-06] MEDS: Albuterol-Ipratrop 3 mg / 0.5 (3 ml) UD IH SCH ×4 (01:05→19:55)
[2018-01-06] MEDS: Sodium Chloride 0.9% 1,000 ML IV SCH ×2 (04:56→20:30)
[2018-01-06 07:52] LABS: HEMOGLOBIN 13.1 g/dL (14.0-18.0); MEAN CELL VOLUME 82.9 fl (80.0-105.0); MEAN CORPUSCULAR HEMOGLOBIN 29.9 pg (25.0-35.0); MEAN CORPUSCULAR HGB CONC 36.1 g/dl (31.0-37.0); MEAN PLATELET VOLUME 10.4 fl (7.0-11.0); RBC 4.38 10^6/uL (3.5-6.1); WHITE BLOOD COUNT 10.7 10^3/ul (4.5-11.0)
[2018-01-06 08:26] LABS: ALBUMIN 3.3 g/dL (3.0-4.8); ALT/SGPT 226 U/L (7-56); AST/SGOT 175 U/L (17-59); BLOOD UREA NITROGEN 9 mg/dL (7-21); CALCIUM 8.5 mg/dL (8.4-10.5); GFR AFRICAN-AMERICAN > 60; GFR NON-AFRICAN AMERICAN > 60
[2018-01-06 09:06] LABS: CK-MB 2.6 ng/mL (0.0-3.6)
[2018-01-06] MEDS: Lactobacillus Acidophilus 500 MU Cap PO SCH ×2 (10:31→19:57)
[2018-01-06] MEDS: levoFLOXacin 750 mg in D5W 150 ML BAG IVPB SCH (10:31)
[2018-01-06] MEDS: MethylPREDNISolone 40 mg Vial IVP SCH ×2 (10:31→21:53)
--- NOTE | 2018-01-06 11:20 | CP.PCM.CON ---
<Vinh Cano - Last Filed: 01/06/18 11:16> History of Present Illness - History of Present Illness History of Present Illness: PGY-4 GI Fellow Consult Note Mr. Abarca is a 32 yo BM with h/o lymphoma (16 years remission, treated with chemotherapy) who is admitted for sepsis due to Legionella Pneumonia as well as Rhabomyolysis. GI consulted for elevated transaminases, possible acetaminophen overdose. Upon admission, patient was treated with broad spectrum antibiotics including Vancomycin, Ceftriaxone and Azithromycin. Antibiotics were eventually narrowed to Levofloxacin once the diagnosis of Legionella was established. As far as acetaminphen, since admission a few days ago he has had a total of 2.6 g of acetaminophen. His AST and ALT were nearly normal on admission but slowly edin to from [phone] (AST) and [phone] (ALT). Alk Phos and Bilirubin were not elevated. During my encounter with the patient, he states that he feels well without any complaints. Denying any abd pain, N/V, rashed, pruritis, confusion, tremor. He reports some social EtOH use that he described as a pint of alcohol on the weekends only; denies any IVDU. 12 point ROS negative other than stated above MHx: Lymphoma in remission x 16 years s/p chemo SurgHx: Bone Marrow Biopsy Meds: None as OP, inpatient sig for above FamHx: Denies liver problems SocHx: Social EtOH, denied illicits All: NKDA Past Patient History - Infectious Disease Hx of Infectious Diseases: None - Past Social History Smoking Status: Current Some Days Smoker - MUSCULOSKELETAL/RHEUMATOLOGICAL Hx Falls: No - PSYCHIATRIC Hx Substance Use: No - SURGICAL HISTORY Hx Surgeries: No - ANESTHESIA Hx Anesthesia: No Hx Anesthesia Reactions: No Hx Malignant Hyperthermia: No Meds Allergies/Adverse Reactions: Allergies Allergy/AdvReac Type Severity Reaction Status Date / Time No Known Allergies Allergy Verified 01/03/18 11:40 - Medications Medications: Current Medications Albuterol/Ipratropium (Duoneb 3 Mg/0.5 Mg (3 Ml) Ud) 3 ml IH [id number] [facility] Last Admin: 01/06/18 07:35 Dose: 3 ml Albuterol/Ipratropium (Duoneb 3 Mg/0.5 Mg (3 Ml) Ud) 3 ml IH Q2H PRN PRN Reason: Shortness of Breath Sodium Chloride (Sodium Chloride 0.9%) 1,000 mls @ 150 mls/hr IV .Q6H40M [facility] Last Admin: 01/06/18 04:56 Dose: 150 mls/hr Lactobacillus Acidophilus (Bacid Acidophilus) 1 cap PO BID [facility] Last Admin: 01/06/18 10:31 Dose: 1 cap Levofloxacin/Dextrose (Levaquin 750mg) 750 mg IVPB DAILY [facility] PRN Reason: Protocol Stop: 01/13/18 07:21 Last Admin: 01/06/18 10:31 Dose: 750 mg Methylprednisolone (Solu-Medrol) 20 mg IVP Q12 [facility] Stop: 01/09/18 23:59 Last Admin: 01/06/18 10:31 Dose: 20 mg Physical Exam - Constitutional Appears: Well, Non-toxic, No Acute Distress - Head Exam Head Exam: ATRAUMATIC, NORMAL INSPECTION - Eye Exam Eye Exam: EOMI. absent: Conjunctival injection, Scleral icterus - ENT Exam ENT Exam: Mucous Membranes Dry, Normal Oropharynx - Respiratory Exam Respiratory Exam: Clear to Auscultation Bilateral. absent: Accessory Muscle Use , Chest Wall Tenderness, Respiratory Distress - Cardiovascular Exam Cardiovascular Exam: RRR. absent: Tachycardia, Rubs, Systolic Murmur - GI/Abdominal Exam GI & Abdominal Exam: Normal Bowel Sounds, Soft. absent: Distended, Guarding, Organomegaly, Pulsatile Mass, Tenderness - Rectal Exam Rectal Exam: Deferred - Neurological Exam Neurological exam: Alert, CN II-XII Intact, Oriented x3 - Psychiatric Exam Psychiatric exam: Normal Affect, Normal Mood - Skin Skin Exam: Intact, Warm Results - Vital Signs Recent Vital Signs: Last Vital Signs Temp 98.7 F 01/06/18 06:00 Pulse 52 L 01/06/18 06:00 Resp 20 01/06/18 06:00 BP 105/73 01/06/18 06:00 Pulse Ox 99 01/06/18 06:00 - Labs Result Diagrams: 01/06/18 07:30 01/06/18 07:30 Labs: Laboratory Results - last 24 hr 01/03/18 01/06/18 01/06/18 15:45 07:30 07:30 WBC 10.7 RBC 4.38 Hgb 13.1 L Hct 36.3 L MCV 82.9 MCH 29.9 MCHC 36.1 RDW 14.0 Plt Count 183 MPV 10.4 Sodium 144 Potassium 4.5 Chloride 110 H Carbon Dioxide 24 Anion Gap 14 BUN 9 Creatinine 0.7 L Est GFR ( Amer) > 60 Est GFR (Non-Af Amer) > 60 Random Glucose 131 H Calcium 8.5 Phosphorus 3.5 Magnesium 2.3 H Total Bilirubin 0.2 AST 175 H ALT 226 H Alkaline Phosphatase 51 Total Creatine Kinase 1169 H CK-MB (CK-2) 2.6 CK-MB (CK-2) % Cancelled Total Protein 6.6 Albumin 3.3 Globulin 3.3 Albumin/Globulin Ratio 1.0 L Acetaminophen HIV 1&2 Ag/Ab, 4th Gen Nonreactive 01/06/18 09:15 WBC RBC Hgb Hct MCV MCH MCHC RDW Plt Count MPV Sodium Potassium Chloride Carbon Dioxide Anion Gap BUN Creatinine Est GFR ( Amer) Est GFR (Non-Af Amer) Random Glucose Calcium Phosphorus Magnesium Total Bilirubin AST ALT Alkaline Phosphatase Total Creatine Kinase CK-MB (CK-2) CK-MB (CK-2) % Total Protein Albumin Globulin Albumin/Globulin Ratio Acetaminophen < 10.0 L HIV 1&2 Ag/Ab, 4th Gen Assessment & Plan - Assessment and Plan (Free Text) Assessment: Elevated Transaminases: Suspect related to Rhabdo as AST > ALT other than today. Perhaps also related to medications as recently received many antibiotics though bilirubin not elevated. Patient did receive acetaminophen but not a significant amount to cause OD; reassuringly lvl returned low; therefore no indication for NAC. Plan: Agree with checking viral hep panel HIV negative and recent UDS only + for MJ Ordered RUQ ultrasound Pending results from US, patient OK to DC from GI standpoint Should have CMP check as outpatient to ensure downtrend Thank you for the consult, please call if questions. Pt seen and staffed with Dr. Montes De Oca - Date & Time Date: 01/06/18 Time: 10:30 <Kwan Montes De Oca - Last Filed: 01/06/18 12:26> Meds - Medications Medications: Current Medications Albuterol/Ipratropium (Duoneb 3 Mg/0.5 Mg (3 Ml) Ud) 3 ml IH [id number] [facility] Last Admin: 01/06/18 07:35 Dose: 3 ml Albuterol/Ipratropium (Duoneb 3 Mg/0.5 Mg (3 Ml) Ud) 3 ml IH Q2H PRN PRN Reason: Shortness of Breath Sodium Chloride (Sodium Chloride 0.9%) 1,000 mls @ 150 mls/hr IV .Q6H40M [facility] Last Admin: 01/06/18 04:56 Dose: 150 mls/hr Lactobacillus Acidophilus (Bacid Acidophilus) 1 cap PO BID [facility] Last Admin: 01/06/18 10:31 Dose: 1 cap Levofloxacin/Dextrose (Levaquin 750mg) 750 mg IVPB DAILY [facility] PRN Reason: Protocol Stop: 01/13/18 07:21 Last Admin: 01/06/18 10:31 Dose: 750 mg Methylprednisolone (Solu-Medrol) 20 mg IVP Q12 [facility] Stop: 01/09/18 23:59 Last Admin: 01/06/18 10:31 Dose: 20 mg Results - Vital Signs Recent Vital Signs: Last Vital Signs Temp 98.7 F 01/06/18 06:00 Pulse 52 L 01/06/18 06:00 Resp 20 01/06/18 06:00 BP 105/73 01/06/18 06:00 Pulse Ox 99 01/06/18 06:00 - Labs Result Diagrams: 01/06/18 07:30 01/06/18 07:30 Labs: Laboratory Results - last 24 hr 01/03/18 01/06/18 01/06/18 15:45 07:30 07:30 WBC 10.7 RBC 4.38 Hgb 13.1 L Hct 36.3 L MCV 82.9 MCH 29.9 MCHC 36.1 RDW 14.0 Plt Count 183 MPV 10.4 Sodium 144 Potassium 4.5 Chloride 110 H Carbon Dioxide 24 Anion Gap 14 BUN 9 Creatinine 0.7 L Est GFR ( Amer) > 60 Est GFR (Non-Af Amer) > 60 Random Glucose 131 H Calcium 8.5 Phosphorus 3.5 Magnesium 2.3 H Total Bilirubin 0.2 AST 175 H ALT 226 H Alkaline Phosphatase 51 Total Creatine Kinase 1169 H CK-MB (CK-2) 2.6 CK-MB (CK-2) % Cancelled Total Protein 6.6 Albumin 3.3 Globulin 3.3 Albumin/Globulin Ratio 1.0 L Acetaminophen HIV 1&2 Ag/Ab, 4th Gen Nonreactive 01/06/18 09:15 WBC RBC Hgb Hct MCV MCH MCHC RDW Plt Count MPV Sodium Potassium Chloride Carbon Dioxide Anion Gap BUN Creatinine Est GFR ( Amer) Est GFR (Non-Af Amer) Random Glucose Calcium Phosphorus Magnesium Total Bilirubin AST ALT Alkaline Phosphatase Total Creatine Kinase CK-MB (CK-2) CK-MB (CK-2) % Total Protein Albumin Globulin Albumin/Globulin Ratio Acetaminophen < 10.0 L HIV 1&2 Ag/Ab, 4th Gen Attending/Attestation - Attestation I have personally seen and examined this patient.: Yes I have fully participated in the care of the patient.: Yes I have reviewed all pertinent clinical information: Yes Notes (Text): 01/06/18 12:21 I have seen and examined patient with GI fellow. Agree with above documentation with the following additions. In brief, this is a 32 year old male with history of lymphoma diagnosed several years ago s/p chemotherapy, substance abuse (marijuana), who initially presented to hospital with complaints of dyspnea and fever. He was found to have legionella pneumonia and continues to undergo treatment. GI called for elevation of liver function tests. Patient denies abdominal pain, nausea, vomiting, diarrhea, jaundice, pruritis, excessive ETOH/tylenol use, or prior knowledge of liver disease. Review of vitals from today are normal. History of lymphoma Substance abuse Legionella pneumonia Transaminitis - primary hepatocellular pattern with normal bilirubin and alkaline phosphatase. Differential includes viral hepatitis, NAFLD, DILI. - Diet as tolerated - Obtain viral hepatitis panel - Obtain RUQ abdominal ultrasound - Continue with antibiotic therapy, avoid hepatotoxic therapies - Continue to monitor LFTs - If initial workup is negative and LFTs remain stable, can likely discharge home with subsequent outpatient follow up and further workup. Will continue to monitor patient clinical course.
--- NOTE | 2018-01-06 13:21 | CP.PCM.PN ---
<Mya Cook L - Last Filed: 01/06/18 15:18> Subjective - Date & Time of Evaluation Date of Evaluation: 01/06/18 Time of Evaluation: 08:15 - Subjective Subjective: No acute events overnight. Patient was resting comfortably this morning, reports no complaints. Denies fever, chills, chest pain, SOB, abd pain, N/V. Objective - Vital Signs/Intake and Output Vital Signs (last 24 hours): Temp Pulse Resp BP Pulse Ox 98.7 F 52 L 20 105/73 99 01/06/18 06:00 01/06/18 06:00 01/06/18 06:00 01/06/18 06:00 01/06/18 06:00 Intake and Output: 01/06/18 01/06/18 06:59 18:59 Intake Total 660 Balance 660 - Medications Medications: Current Medications Albuterol/Ipratropium (Duoneb 3 Mg/0.5 Mg (3 Ml) Ud) 3 ml IH [id number] [facility] Last Admin: 01/06/18 13:05 Dose: 3 ml Albuterol/Ipratropium (Duoneb 3 Mg/0.5 Mg (3 Ml) Ud) 3 ml IH Q2H PRN PRN Reason: Shortness of Breath Sodium Chloride (Sodium Chloride 0.9%) 1,000 mls @ 150 mls/hr IV .Q6H40M [facility] Last Admin: 01/06/18 04:56 Dose: 150 mls/hr Lactobacillus Acidophilus (Bacid Acidophilus) 1 cap PO BID [facility] Last Admin: 01/06/18 10:31 Dose: 1 cap Levofloxacin/Dextrose (Levaquin 750mg) 750 mg IVPB DAILY [facility] PRN Reason: Protocol Stop: 01/13/18 07:21 Last Admin: 01/06/18 10:31 Dose: 750 mg Methylprednisolone (Solu-Medrol) 20 mg IVP Q12 [facility] Stop: 01/09/18 23:59 Last Admin: 01/06/18 10:31 Dose: 20 mg - Labs Labs: 01/06/18 07:30 01/06/18 07:30 - Additional Findings Additional findings: - Constitutional Appears: No Acute Distress, Alert - Head Exam Head Exam: ATRAUMATIC, NORMAL INSPECTION, NORMOCEPHALIC - ENT Exam ENT Exam: Mucous Membranes Moist, Normal Exam - Neck Exam Neck exam: Positive for: Normal Inspection - Respiratory Exam Respiratory Exam: Clear to Auscultation Bilateral, NORMAL BREATHING PATTERN. absent: Accessory Muscle Use, Chest Wall Tenderness, Rales, Rhonchi, Wheezes, Respiratory Distress - Cardiovascular Exam Cardiovascular Exam: REGULAR RHYTHM, RRR, +S1, +S2. absent: Diastolic murmur, Gallop, Rubs, Systolic Murmur - GI/Abdominal Exam GI & Abdominal Exam: Normal Bowel Sounds, Soft. absent: Guarding, Mass, Rebound - Extremities Exam Extremities exam: Positive for: normal inspection. Negative for: pedal edema - Psychiatric Exam Psychiatric exam: Normal affect - Skin Skin Exam: Dry, Normal Color, Warm Assessment and Plan - Assessment and Plan (Free Text) Plan: 32 yo male with PMH of lymphoma presents to [facility] with weakness, subsequently found to have rhabdomyolysis and extensive left upper lobe consolidation. 1) Sepsis due to CAP secondary to Legionella pneumophila - CXR and chest CT done on admission. Confirmed SYL pneumonia. - Sepsis resolving - Afebrile for more than 24 hours - WBC trending down - Blood culture negative for 48 hours x2 - Procal was elevated - HIV negative - Continue Levaquin and Solu-Medrol - Follow up pulm consult for Solu-Medrol taper - Follow up ID consult for antibiotic recommendations - Continue bronchodilators - Continue Chest PT PRN 2) Rhabdomyolysis - Likely due to Legionella sepsis - Total CK trending down - Continue NS at 150 mls/hr 3) Transaminitis - Likely due to antibiotics vs. viral hepatitis vs. NAFLD vs. DILI per GI consult - Patient to be discharged pending viral hepatitis and abd US results - Acetaminophen level <10 - Continue to monitor LFTs 4) Hyponatremia - Likely due to Legionella sepsis - Resolved 5) Hypochloremia - Likely due to Legionella sepsis - Resolved 6) Substance abuse - UDS positive for cannabinoids - Counseling provided 7) Disposition - Pending US and hepatitis panel GI/DVT PPX - GI prophylaxis: Protonix - DVT prophylaxis: SCDs Case seen and discussed with Dr. Lawson Cook PGY 1 <Rachel Pathak R - Last Filed: 01/07/18 08:47> Objective - Vital Signs/Intake and Output Vital Signs (last 24 hours): Temp Pulse Resp BP Pulse Ox 98.5 F 60 20 140/81 98 01/06/18 14:00 01/06/18 14:00 01/06/18 14:00 01/06/18 14:00 01/06/18 14:00 Intake and Output: 01/07/18 01/07/18 06:59 18:59 Intake Total 540 Balance 540 - Labs Labs: 01/06/18 07:30 01/06/18 07:30 Attending/Attestation - Attestation I have personally seen and examined this patient.: Yes I have fully participated in the care of the patient.: Yes I have reviewed all pertinent clinical information, including history, physical exam and plan: Yes Notes (Text): Patient seen and examined by me at 11:00AM with resident at bedside. Case including physical assessment and plan discussed in detail with resident. Agree with above with following additions/changes. Patient states he is feeling much better today. Wants to go home. Afebrile for 24 hours. No more diaphoresis. No chest pain or shortness of breath. No nausea vomiting or abdominal pain. No dysuria. No diarrhea or constipation. No headaches or dizziness. Cough is minimal. Physical exam: Gen: Patient is awake and alert sitting up in bed in no acute distress HEENT: Normocephalic atraumatic. extraocular muscles intact. Pupils equal and reactive. Oropharynx is pink and moist. No pharyngeal erythema or exudate appreciated. Neck is supple. Pulmonary: Improving breath sounds. Normal respiratory effort. No rhonchi, rales or wheezing appreciated. Cardiovascular: Normal rhythm. Normal S1 and S2. No murmurs or gallops appreciated. Gastrointestinal: Soft, nontender, nondistended. Positive bowel sounds all 4 quadrants. No guarding. Musculoskeletal: Normal range of motion of extremities. No calf tenderness. Central nervous system: AAO 3 Dermatologic: Skin warm and dry Assessment and plan: Patient is a 32-year-old male with past medical history significant for lymphoma that presented to the emergency room with feeling "overheated". Patient found to have Legionella pneumonia. 1. Sepsis secondary to Community-acquired pneumonia secondary to Legionella. Left upper lobe consolidation seen on chest CT. Procalcitonin elevated. Sepsis resolved. Chest x-ray per radiologist from 01/04/2018 shows moderate interval improvement in right upper lobe pneumonia, however, extensive consolidative changes remain. Pulmonary following, recommendations appreciated. ID following, recommendations appreciated. Continue with steroids for inflammation secondary to Legionella. HIV nonreactive. Leukocytosis resolved. Patient cleared for discharge by ID on 10-14 days of Levaquin. 2. Leukocytosis. Secondary to #1. Resolved. Continue to monitor. 3. Elevated LFTs. Likely secondary to sepsis and Legionella. GI consulted, recommendations appreciated. Discussed with Dr. Montes De Oca. Per Dr. Montes De Oca, patient can be discharged with outpatient follow-up if appetite is panel is negative and ultrasound of the abdomen does not show anything acute. Pending results 4. Hyponatremia and hypochloremia. Likely secondary to dehydration. Hyponatremia also may be secondary to Legionella. Resolved. Continue IV fluids. 5. Rhabdomyolysis. Improving. Continue IV fluids. Monitor CPK. 6. Drug abuse. UDS positive for marijuana. Counseled on cessation. 7. Disposition. Patient for discharge possibly today if hep panel is negative and abdominal ultrasound is done. Patient states that he does have a physician that he can follow up with as an outpatient. Case was discussed in detail with patient and medical research tech regarding current diagnosis and treatment
[2018-01-06 16:24] VITALS: BP 140/81; PULSE 60; TEMP 98.5; O2SAT 98
[2018-01-06 17:33] LABS: HEPATITIS B SURFACE AG Negative (NEGATIVE)
[2018-01-06 17:39] LABS: HEPATITIS A IGM NEGATIVE (NEGATIVE); HEPATITIS B CORE AB NEGATIVE (NEGATIVE)
[2018-01-06 17:50] LABS: HEPATITIS C ANTIBODY NEGATIVE (NEGATIVE)
--- NOTE | 2018-01-06 21:48 | CP.PCM.DIS ---
<Leonardo Forrester - Last Filed: 01/06/18 21:50> Provider - Provider Date of Admission: 01/03/18 14:14 Attending physician: Rachel Pathak DO Primary care physician: NO PRIMARY CARE PROVIDER Consults: GI: Enriquez ID: [id number] Pulm: Chuy Time Spent in preparation of Discharge (in minutes): 45 Diagnosis - Discharge Diagnosis (1) Legionella pneumonia Status: Acute Priority: High (2) Elevated liver enzymes Status: Acute Priority: Medium (3) Rhabdomyolysis Status: Acute Priority: Medium Hospital Course - Lab Results Lab Results: Most Recent Lab Values WBC 10.7 10^3/ul (4.5-11.0) 01/06/18 07:30 RBC 4.38 10^6/uL (3.5-6.1) 01/06/18 07:30 Hgb 13.1 g/dL (14.0-18.0) L 01/06/18 07:30 Hct 36.3 % (42.0-52.0) L 01/06/18 07:30 MCV 82.9 fl (80.0-105.0) 01/06/18 07:30 MCH 29.9 pg (25.0-35.0) 01/06/18 07:30 MCHC 36.1 g/dl (31.0-37.0) 01/06/18 07:30 RDW 14.0 % (11.5-14.5) 01/06/18 07:30 Plt Count 183 10^3/uL (120.0-450.0) 01/06/18 07:30 MPV 10.4 fl (7.0-11.0) 01/06/18 07:30 Gran % 84.4 % (50.0-68.0) H 01/03/18 12:05 Lymph % (Auto) 6.4 % (22.0-35.0) L 01/03/18 12:05 [place] % (Auto) 9.1 % (1.0-6.0) H 01/03/18 12:05 Eos % (Auto) 0.0 % (1.5-5.0) L 01/03/18 12:05 Baso % (Auto) 0.1 % (0.0-3.0) 01/03/18 12:05 Gran # 14.33 (1.4-6.5) H 01/03/18 12:05 Lymph # (Auto) 1.1 (1.2-3.4) L 01/03/18 12:05 [place] # (Auto) 1.6 (0.1-0.6) H 01/03/18 12:05 Eos # (Auto) 0.0 (0.0-0.7) 01/03/18 12:05 Baso # (Auto) 0.02 K/mm3 (0.0-2.0) 01/03/18 12:05 Sodium 144 mmol/L (132-148) 01/06/18 07:30 Potassium 4.5 mmol/L (3.6-5.0) 01/06/18 07:30 Chloride 110 mmol/L (98-107) H 01/06/18 07:30 Carbon Dioxide 24 mmol/L (21-33) 01/06/18 07:30 Anion Gap 14 (10-20) 01/06/18 07:30 BUN 9 mg/dL (7-21) 01/06/18 07:30 Creatinine 0.7 mg/dl (0.8-1.5) L 01/06/18 07:30 Est GFR ( Amer) > 60 01/06/18 07:30 Est GFR (Non-Af Amer) > 60 01/06/18 07:30 Random Glucose 131 mg/dL (70-110) H 01/06/18 07:30 Calcium 8.5 mg/dL (8.4-10.5) 01/06/18 07:30 Phosphorus 3.5 mg/dL (2.5-4.5) 01/06/18 07:30 Magnesium 2.3 mg/dL (1.7-2.2) H 01/06/18 07:30 Total Bilirubin 0.2 mg/dL (0.2-1.3) 01/06/18 07:30 AST 175 U/L (17-59) H 01/06/18 07:30 ALT 226 U/L (7-56) H 01/06/18 07:30 Alkaline Phosphatase 51 U/L (38-126) 01/06/18 07:30 Total Creatine Kinase 1169 U/L (35-230) H 01/06/18 07:30 CK-MB (CK-2) 2.6 ng/mL (0.0-3.6) 01/06/18 07:30 CK-MB (CK-2) % Cancelled 01/03/18 12:30 C-Reactive Protein 323.30 mg/L (0.0-9.9) H 01/04/18 06:45 Total Protein 6.6 g/dL (5.8-8.3) 01/06/18 07:30 Albumin 3.3 g/dL (3.0-4.8) 01/06/18 07:30 Globulin 3.3 gm/dL 01/06/18 07:30 Albumin/Globulin Ratio 1.0 (1.1-1.8) L 01/06/18 07:30 Procalcitonin 0.61 NG/ML (0.19-0.49) H 01/03/18 15:45 Urine Color Yellow (YELLOW) 01/03/18 12:05 Urine Appearance Clear (CLEAR) 01/03/18 12:05 Urine pH 6.0 (4.7-8.0) 01/03/18 12:05 Ur Specific [place] 1.010 (1.005-1.035) 01/03/18 12:05 Urine Protein 30 mg/dL (<30 mg/dL) H 01/03/18 12:05 Urine Glucose (UA) Negative mg/dL (NEGATIVE) 01/03/18 12:05 Urine Ketones Negative mg/dL (NEGATIVE) 01/03/18 12:05 Urine Blood Moderate (NEGATIVE) H 01/03/18 12:05 Urine Nitrate Negative (NEGATIVE) 01/03/18 12:05 Urine Bilirubin Negative (NEGATIVE) 01/03/18 12:05 Urine Urobilinogen 0.2 E.U./dL (<1 E.U./dL) 01/03/18 12:05 Ur Leukocyte Esterase Negative Kaiser/uL (NEGATIVE) 01/03/18 12:05 Urine RBC 5 - 10 /hpf (0-2) 01/03/18 12:05 Urine WBC 2 - 5 /hpf (0-6) 01/03/18 12:05 Ur Epithelial Cells 3 - 4 /hpf (0-5) 01/03/18 12:05 Urine Bacteria Few (NEG) 07/03/18 12:05 Urine Opiates Screen Negative (NEGATIVE) 01/03/18 13:50 Urine Methadone Screen Negative (NEGATIVE) 01/03/18 13:50 Acetaminophen < 10.0 ug/ml (10.0-20.0) L 01/06/18 09:15 Ur Barbiturates Screen Negative (NEGATIVE) 01/03/18 13:50 Ur Phencyclidine Scrn Negative (NEGATIVE) 01/03/18 13:50 Ur Amphetamines Screen Negative (NEGATIVE) 01/03/18 13:50 U Benzodiazepines Scrn Negative (NEGATIVE) 01/03/18 13:50 U Oth Cocaine Metabols Negative (NEGATIVE) 01/03/18 13:50 U Cannabinoids Screen Positive (NEGATIVE) H 01/03/18 13:50 Hepatitis A IgM Ab Negative (NEGATIVE) 01/06/18 09:15 Hep Bs Antigen Negative (NEGATIVE) 01/06/18 09:15 Hep B Core IgM Ab Negative (NEGATIVE) 01/06/18 09:15 Hepatitis C Antibody Negative (NEGATIVE) 01/06/18 09:15 HIV 1&2 Ag/Ab, 4th Gen Nonreactive (Nonreactive) 01/03/18 15:45 Ur L.pneumophila Ag Positive (NEGATIVE) H 01/03/18 15:45 Mycoplasma pneumon IgG >5.00 (<=0.90) H 01/03/18 15:45 Mycoplasma pneumon IgM 375 U/mL (<770) 01/03/18 15:45 - Hospital Course Hospital Course: Patient is a 32 yo M with PMH of lymphoma presented to [facility] [place] due to weakness and feeling overheated. Patient states that any attempt to keep cool did not help. Patient also complained of back pain. In the ED, patient was found to have an elevated total CK of 2730 and leukocytosis. CXR was ordered which showed left lateral pleural parenchymal based pathology. Follow up CT showed extensive left upper lobe consolidation compatible with extensive infiltrate. UDS was positive for cannabinoids. Patient was thus admitted for evaluation and treatment for community acquired pneumonia and rhabdomyolysis. Patient was continued on IVF and antibiotics. Electrolytes were monitored and repleted as needed. Infectious disease and Pulmonology were consulted, recommendations were appreciated. Workup revealed a positive urine Legionella pneumophilia antigen. Patient antibiotics were changed to Levaquin to cover for legionella. Elevated CRP was also found, thus patient was placed on IV steroids. CK was trended daily, which improved with IVF. During hospital course, LFT's elevated. GI was consulted, recommendations were appreciated. Hepatitis panel was negative. Abdominal US was negative. Today, the patient was seen and examined at bedside. No acute overnight events. Patient stated that he felt better. Case was discussed with all consultants who were in agreement with plan. Patient was advised to follow with his PMD and GI upon discharge for repeat blood work. Patient was given prescriptions and advised to take as instructed. Risks and benefits were explained to patient, who acknowledged and agreed to plan. As patient was medically stable, he was discharged. Discharge Medications Pepcid 20 mg PO BID x7 days Bacid 1 cap PO BID x10 days Levaquin 750 mg PO daily x7 days Medrol Dose Pack Discharge Exam - Head Exam Head Exam: ATRAUMATIC, NORMAL INSPECTION - Eye Exam Eye Exam: EOMI, Normal appearance, PERRL Pupil Exam: NORMAL ACCOMODATION, PERRL - ENT Exam ENT Exam: Mucous Membranes Moist - Neck Exam Neck exam: Normal Inspection - Respiratory Exam Respiratory Exam: Clear to PA & Lateral. absent: Rales, Rhonchi, Wheezes - Cardiovascular Exam Cardiovascular Exam: RRR, +S1, +S2. absent: Diastolic murmur, Gallop, Rubs, Systolic Murmur - GI/Abdominal Exam GI & Abdominal Exam: Normal Bowel Sounds, Soft. absent: Distended, Guarding, Rebound, Rigid, Tenderness - Extremities Exam Extremities exam: normal inspection - Back Exam Back exam: NORMAL INSPECTION - Neurological Exam Neurological exam: Alert, CN II-XII Intact, Oriented x3 - Psychiatric Exam Psychiatric exam: Normal Affect, Normal Mood - Skin Skin Exam: Dry, Intact, Normal Color, Warm Discharge Plan - Discharge Medications Prescriptions: Famotidine [Pepcid] 20 mg PO BID #14 tablet Lactobacillus Acidophilus [Bacid Acidophilus] 1 cap PO BID 10 Days cap Levofloxacin [Levaquin] 750 mg PO DAILY #7 tablet Methylprednisolone [Medrol Dose Pack (21 tabs)] See Taper PO DAILY #21 mg - Follow Up Plan Condition: STABLE Disposition: HOME/ ROUTINE Instructions: Rhabdomyolysis (DC), Legionnaires' Disease (DC), Community- Acquired Pneumonia, Adult (DC), Leukocytosis (DC), Leukocytosis (GEN) Additional Instructions: 1. Follow up with primary care doctor within 3-5 days 2. Liver numbers are elevated, please follow up with primary care doctor or stockroom associate, Dr. Montes De Oca for repeat blood work within 3-5 days 3. Start antibiotic, Levaquin, tomorrow: 01/07/18 4. Take medications as prescribed 5. Return to ED if symptoms worsen Referrals: Dave Talbert MD [Non-Staff] - Kwan Montes De Oca MD [Staff Provider] - PCP,NO [Primary Care Provider] - <Rachel Pathak - Last Filed: 01/07/18 17:01> Provider - Provider Date of Admission: 01/03/18 14:14 Attending physician: Rachel Pathak, Primary care physician: NO PRIMARY CARE PROVIDER Hospital Course - Lab Results Lab Results: Most Recent Lab Values WBC 10.7 10^3/ul (4.5-11.0) 01/06/18 07:30 RBC 4.38 10^6/uL (3.5-6.1) 01/06/18 07:30 Hgb 13.1 g/dL (14.0-18.0) L 01/06/18 07:30 Hct 36.3 % (42.0-52.0) L 01/06/18 07:30 MCV 82.9 fl (80.0-105.0) 01/06/18 07:30 MCH 29.9 pg (25.0-35.0) 01/06/18 07:30 MCHC 36.1 g/dl (31.0-37.0) 01/06/18 07:30 RDW 14.0 % (11.5-14.5) 01/06/18 07:30 Plt Count 183 10^3/uL (120.0-450.0) 01/06/18 07:30 MPV 10.4 fl (7.0-11.0) 01/06/18 07:30 Gran % 84.4 % (50.0-68.0) H 01/03/18 12:05 Lymph % (Auto) 6.4 % (22.0-35.0) L 01/03/18 12:05 [place] % (Auto) 9.1 % (1.0-6.0) H 01/03/18 12:05 Eos % (Auto) 0.0 % (1.5-5.0) L 01/03/18 12:05 Baso % (Auto) 0.1 % (0.0-3.0) 01/03/18 12:05 Gran # 14.33 (1.4-6.5) H 01/03/18 12:05 Lymph # (Auto) 1.1 (1.2-3.4) L 01/03/18 12:05 [place] # (Auto) 1.6 (0.1-0.6) H 01/03/18 12:05 Eos # (Auto) 0.0 (0.0-0.7) 01/03/18 12:05 Baso # (Auto) 0.02 K/mm3 (0.0-2.0) 01/03/18 12:05 Sodium 144 mmol/L (132-148) 01/06/18 07:30 Potassium 4.5 mmol/L (3.6-5.0) 01/06/18 07:30 Chloride 110 mmol/L (98-107) H 01/06/18 07:30 Carbon Dioxide 24 mmol/L (21-33) 01/06/18 07:30 Anion Gap 14 (10-20) 01/06/18 07:30 BUN 9 mg/dL (7-21) 01/06/18 07:30 Creatinine 0.7 mg/dl (0.8-1.5) L 01/06/18 07:30 Est GFR ( Amer) > 60 01/06/18 07:30 Est GFR (Non-Af Amer) > 60 01/06/18 07:30 Random Glucose 131 mg/dL (70-110) H 01/06/18 07:30 Calcium 8.5 mg/dL (8.4-10.5) 01/06/18 07:30 Phosphorus 3.5 mg/dL (2.5-4.5) 01/06/18 07:30 Magnesium 2.3 mg/dL (1.7-2.2) H 01/06/18 07:30 Total Bilirubin 0.2 mg/dL (0.2-1.3) 01/06/18 07:30 AST 175 U/L (17-59) H 01/06/18 07:30 ALT 226 U/L (7-56) H 01/06/18 07:30 Alkaline Phosphatase 51 U/L (38-126) 01/06/18 07:30 Total Creatine Kinase 1169 U/L (35-230) H 01/06/18 07:30 CK-MB (CK-2) 2.6 ng/mL (0.0-3.6) 01/06/18 07:30 CK-MB (CK-2) % Cancelled 01/03/18 12:30 C-Reactive Protein 323.30 mg/L (0.0-9.9) H 01/04/18 06:45 Total Protein 6.6 g/dL (5.8-8.3) 01/06/18 07:30 Albumin 3.3 g/dL (3.0-4.8) 01/06/18 07:30 Globulin 3.3 gm/dL 01/06/18 07:30 Albumin/Globulin Ratio 1.0 (1.1-1.8) L 01/06/18 07:30 Procalcitonin 0.61 NG/ML (0.19-0.49) H 01/03/18 15:45 Urine Color Yellow (YELLOW) 01/03/18 12:05 Urine Appearance Clear (CLEAR) 01/03/18 12:05 Urine pH 6.0 (4.7-8.0) 01/03/18 12:05 Ur Specific [place] 1.010 (1.005-1.035) 01/03/18 12:05 Urine Protein 30 mg/dL (<30 mg/dL) H 01/03/18 12:05 Urine Glucose (UA) Negative mg/dL (NEGATIVE) 01/03/18 12:05 Urine Ketones Negative mg/dL (NEGATIVE) 01/03/18 12:05 Urine Blood Moderate (NEGATIVE) H 01/03/18 12:05 Urine Nitrate Negative (NEGATIVE) 01/03/18 12:05 Urine Bilirubin Negative (NEGATIVE) 01/03/18 12:05 Urine Urobilinogen 0.2 E.U./dL (<1 E.U./dL) 01/03/18 12:05 Ur Leukocyte Esterase Negative Kaiser/uL (NEGATIVE) 01/03/18 12:05 Urine RBC 5 - 10 /hpf (0-2) 01/03/18 12:05 Urine WBC 2 - 5 /hpf (0-6) 07/03/18 12:05 Ur Epithelial Cells 3 - 4 /hpf (0-5) 01/03/18 12:05 Urine Bacteria Few (NEG) 01/03/18 12:05 Urine Opiates Screen Negative (NEGATIVE) 01/03/18 13:50 Urine Methadone Screen Negative (NEGATIVE) 01/03/18 13:50 Acetaminophen < 10.0 ug/ml (10.0-20.0) L 01/06/18 09:15 Ur Barbiturates Screen Negative (NEGATIVE) 01/03/18 13:50 Ur Phencyclidine Scrn Negative (NEGATIVE) 01/03/18 13:50 Ur Amphetamines Screen Negative (NEGATIVE) 01/03/18 13:50 U Benzodiazepines Scrn Negative (NEGATIVE) 01/03/18 13:50 U Oth Cocaine Metabols Negative (NEGATIVE) 01/03/18 13:50 U Cannabinoids Screen Positive (NEGATIVE) H 01/03/18 13:50 Hepatitis A IgM Ab Negative (NEGATIVE) 01/06/18 09:15 Hep Bs Antigen Negative (NEGATIVE) 01/06/18 09:15 Hep B Core IgM Ab Negative (NEGATIVE) 01/06/18 09:15 Hepatitis C Antibody Negative (NEGATIVE) 01/06/18 09:15 HIV 1&2 Ag/Ab, 4th Gen Nonreactive (Nonreactive) 01/03/18 15:45 Ur L.pneumophila Ag Positive (NEGATIVE) H 01/03/18 15:45 Mycoplasma pneumon IgG >5.00 (<=0.90) H 01/03/18 15:45 Mycoplasma pneumon IgM 375 U/mL (<770) 01/03/18 15:45 Ur Strep pneumoniae Ag Not detected 01/03/18 15:45 Attending/Attestation - Attestation I have personally seen and examined this patient.: Yes I have fully participated in the care of the patient.: Yes I have reviewed all pertinent clinical information, including history, physical exam and plan: Yes Notes (Text): Patient seen and examined by me at 11:00AM with resident at bedside. Case including physical assessment and plan discussed in detail with resident. Agree with above with following additions/changes. Please see progress note from same day for physical exam. Patient is a 32-year-old male with past medical history significant for lymphoma presented with the feeling of "overheating". Was found to have Legionella pneumonia. Chest x-ray showed right upper lobe pneumonia. Patient was febrile. Patient initially started on Rocephin and Zithromax. ID was consulted. Blood cultures are negative. Patient antibiotics were changed to Levaquin. Patient was also seen by pulmonary. Patient was started on steroids for inflammation from Legionella. Patient's symptoms improved. Repeat chest X- ray showed improved right upper lobe pneumonia. This resolved. Fevers resolved. Diaphoresis and chills resolved. Per ID, patient to complete a total of 10-14 days of Levaquin and was cleared for discharge on oral antibiotics. Patient also found to have elevated CPK which did improve with IV fluids. Patient also found to have elevated LFTs. Patient was evaluated by GI. Per GI if hepatitis panel and right upper quadrant ultrasound did not show anything acute, patient cleared for discharge with outpatient follow-up. Hepatitis panel negative. Right upper quadrant ultrasound showed hepatic steatosis. All symptoms improved upon discharge. Patient wanted to go home. He was cleared for discharge by all consultants. Please see chart for full details. Follow-up instructions: Patient states follow-up with his primary care doctor within 3-5 days. Patient states that he has a primary care doctor that he can follow up with. Liver numbers are elevated, please follow up with primary care doctor stockroom associate Dr. Montes De Oca, for repeat blood work within 3-5 days. Antibiotic Levaquin on 01/07/2018. Take Medications as prescribed. All instructions were explained to the patient in detail. Written Instructions given to patient. Patient both understands and agrees to all instructions. Time spent in discharging the patient including chart review, medication reconciliation, discussion with the patient, medical coding specialist, consultants, and nursing staff was approximately 40 minutes.
--- NOTE | 2018-01-07 01:53 | PN ---
DATE: 01/06/2018 SUBJECTIVE: The patient is seen early this morning in room 573, bed 3. Doing well. No fevers. No chills. Much more comfortable. PHYSICAL EXAMINATION: VITAL SIGNS: Temperature is 98, blood pressure is 140/60, respiratory rate of 16. HEENT: Examination of HEENT is unremarkable. NECK: Supple. LUNGS: Have decreased breath sounds. HEART: Normal S1 and S2. ABDOMEN: Soft. LABORATORY DATA: Laboratory examination reveals white count of 10,000, hemoglobin of 13, platelets of 183. Chemistries are noted. LFT's are noted. . Serology is reviewed. Cultures are negative. is on IV Levaquin. ASSESSMENT AND PLAN: A 32-year-old male with past medical history of lymphoma 16 years ago, presenting with sepsis, Legionella pneumonia. May be able to switch to p.o. Levaquin, completed 10-14 days. Rodo Jean MD
[2018-01-07] MEDS ORDERED: Pantoprazole 40 mg EC Tab PO SCH (06:00)
--- NOTE | 2018-01-07 08:27 | US ---
HISTORY: elevated LFT COMPARISON: None. TECHNIQUE: Sonographic evaluation of the abdomen. FINDINGS: LIVER: Measures 11 x 14.1 cm. Hepatopedal blood flow. Fatty infiltration manifest ultrasonographically as increased echogenicity of the liver parenchyma. No mass. No intrahepatic bile duct dilatation. GALLBLADDER: Unremarkable. No gallstones. COMMON BILE DUCT: Measures 3.3 mm. No stones. No dilatation. PANCREAS: Unremarkable as visualized. No mass. No ductal dilatation. RIGHT KIDNEY: Measures 4.6 x 11.8cm. Normal echogenicity. No calculus, mass, or hydronephrosis. LEFT KIDNEY: Measures 5.5 x 12.0cm. Normal echogenicity. No calculus, mass, or hydronephrosis. SPLEEN: Normal in size and contour. No mass. AORTA: No aneurysmal dilatation. IVC: Unremarkable. OTHER FINDINGS: None. IMPRESSION: Hepatic steatosis without focal liver abnormality. Otherwise unremarkable study. Concordant results (preliminary interpretation) provided by [facility]. Procedure Completed: 19:08 Preliminary ([facility]) Report: Dictated and Authenticated: 19:32 Final Interpretation: 08:25 January 07, 2018.
== END 2018-01-06 22:45 | disposition home or self-care (01) | DRG 584 ==
LOC: ED 11:29 → ERH 14:14 → 5RNO 16:17 → 5RSO 01-05 09:45
PROVIDERS: ADMIT Internal Medicine; ATTEND Hospitalist
DX: A41.9 Sepsis, unspecified organism (principal); A48.1 Legionnaires' disease; M62.82 Rhabdomyolysis; E87.1 Hypo-osmolality and hyponatremia; E87.6 Hypokalemia; E87.8 Other disorders of electrolyte and fluid balance, not elsewhere classified; E86.0 Dehydration; K76.0 Fatty (change of) liver, not elsewhere classified; F12.10 Cannabis abuse, uncomplicated; F17.290 Nicotine dependence, other tobacco product, uncomplicated; Z92.21 Personal history of antineoplastic chemotherapy; Z85.72 Personal history of non-Hodgkin lymphomas; Z83.3 Family history of diabetes mellitus